=== PATIENT | female | born 1985 | race Caucasian/White ===

== ENCOUNTER 2021-07-07 15:23 | Outpatient (CLI) | payer BC, SELFPAY ==
[2021-07-07 16:10] LABS: Hemoglobin 12.9 g/dL (12.0-15.0); Mean Corpuscular HGB Conc 30.7 g/dL (32.0-36.0); Mean Corpuscular Hemoglobin 25.4 pg (27.0-31.0); Mean Corpuscular Volume 82.7 fL (78.0-102.0); Platelet Count Result 385 K/mm3 (150-420); Red Blood Count 5.08 M/mm3 (4.20-5.40); Red Cell Distribution Width 13.3 % (11.6-14.4); White Blood Count 7.2 K/mm3 (4.8-10.8)
[2021-07-07 16:31] LABS: Alanine Aminotransferase 23 U/L (14-59); Albumin Level 3.5 g/dL (3.4-5.0); Alkaline Phosphatase 69 U/L (46-116); Anion Gap 12 mmol/L (8-16); Aspartate Amino Transferase 14 U/L (15-37); Bilirubin,Total 0.3 mg/dL (0.00-1.00); Blood Urea Nitrogen 16 mg/dL (7-18); Carbon Dioxide 28 mmol/L (21-32); Chloride 101 mmol/L (98-108); Cholesterol 282 mg/dL (0-200); Estimated Glomerular Filt Rate > 60; Glucose 89 mg/dL (70-99); HDL Direct 76 mg/dL (40-60); LDL Cholesterol Calculated 180 mg/dL (<130); Osmolality Calculated 292 mOsm/kg (285-295); Potassium 4.1 mmol/L (3.5-5.1); Sodium 141 mmol/L (136-145); Total Protein 7.4 g/dL (6.4-8.2); Triglycerides 131 mg/dL (0-150)
[2021-07-07 17:01] LABS: Thyroid Stimulating Hormone Reflex 0.46 u/IU/mL (0.36-3.74)
== END 2021-07-07 15:24 | disposition home or self-care (01) ==
LOC: CHSLAB 15:25
PROVIDERS: PCP Family Medicine; Visit Provider Family Medicine
DX: Z00.00 Encounter for general adult medical examination without abnormal findings (principal); E11.9 Type 2 diabetes mellitus without complications
CPT/HCPCS: 36415; 80053; 80061; 84443; 85027

== ENCOUNTER 2022-08-07 08:03 | Emergency (ER) | payer OTHER, SELFPAY ==
--- NOTE | 2022-08-07 08:06 | ED.GENADULT ---
HPI - General Adult General Chief complaint: Upper Respiratory Infection Stated complaint: sorethroat Time Seen by Provider: 08/07/22 08:06 Source: patient Mode of arrival: ambulatory Limitations: no limitations History of Present Illness HPI narrative: 36-year-old female presents to the [facility] with complaints of sore throat that started approximately 5 days ago but states got significantly worse last night. Patient states she has been having fevers, body aches, chills and head congestion as well sore throat. Denies any abdominal pain, nausea, vomiting or diarrhea. Related Data Home Medications Medication Instructions Recorded Confirmed norgestimate 0.25 mg-ethinyl 1 tablet PO DAILY 07/07/21 estradiol 35 mcg tablet (Estarylla) sertraline 50 mg tablet 50 mg PO DAILY 07/07/21 Allergies Allergy/AdvReac Type Severity Reaction Status Date / Time No Known Allergies Allergy Verified 07/07/21 12:20 Review of Systems Review of Systems: CONSTITUTIONAL: Positive fever, chills, or sweats. EYES: Denies visual changes, redness, or discharge. ENT: Denies rhinorrhea, positivecongestion, sore throat, denies otalgia. CARDIOVASCULAR: Denies chest pain, palpitations, or edema. RESPIRATORY: Denies cough or dyspnea. GASTROINTESTINAL: Denies abdominal pain, nausea, vomiting, or diarrhea. GENITOURINARY: Denies dysuria or hematuria. SKIN: Denies rash or itching. MUSCULOSKELETAL: Denies back pain, joint pain, or myalgia. NEUROLOGIC: Denies headache, numbness, or weakness. PSYCHIATRIC: Denies anxiety or depression. [facility] Past Medical History Medical History Depression LOGAN (generalized anxiety disorder) Surgical History Surgical History No history of previous surgery Family History Family History Mother COPD (chronic obstructive pulmonary disease) Alcohol abuse Bipolar 1 disorder Father Hypertension Heart failure Social History Social History Smoking status: Never smoker Alcohol intake: current Alcohol use details: Rarely. 1 drink once a month Substance use: never Living arrangements: with family Comments At the time of my signature I agree with nursing past medical history, surgical, social, and family history. There is no relevant family history pertinent to the presenting complaint. Exam Narrative: GENERAL: Well-appearing, well-nourished, and in no acute distress. HEAD: Normocephalic, atraumatic. EYES: PERRLA and EOMI. ENT: Nares clear, no rhinorrhea or epistaxis. Mucous membranes moist. bilateral TMs are clear with no erythema or foreign bodies to the canal. Posterior pharynx with erythema and 1+ tonsil enlargement bilaterally. NECK: Supple. No lymphadenopathy CHEST: Clear to auscultation. No respiratory distress. HEART: Regular rate and rhythm. No murmur heard. Normal peripheral pulses. ABDOMEN: Soft, nontender, nondistended, normal active bowel sounds. EXTREMITIES: Normal range of motion. No edema. SKIN: Warm, dry, no rash. NEURO: No focal deficits. Alert and oriented x3. Course Course Level of Care: Express Care Visit Vital Signs Vital signs: Vital Signs Temperature 37.3 C 08/07/22 08:16 Pulse Rate 68 08/07/22 08:16 Respiratory Rate 18 08/07/22 08:16 Blood Pressure 130/66 08/07/22 08:16 Pulse Oximetry 100 08/07/22 08:16 Oxygen Delivery Room Air 08/07/22 08:16 Temperature 37.3 C 08/07/22 08:16 Pulse Rate 68 08/07/22 08:16 Respiratory Rate 18 08/07/22 08:16 Blood Pressure 130/66 08/07/22 08:16 Pulse Oximetry 100 08/07/22 08:16 Oxygen Delivery Room Air 08/07/22 08:16 Vital signs reviewed Medical Decision Making Differential Diagnosis Differential Diagnosis: differential diagnosis: Viral pharyngitis,
[2022-08-07 08:16] VITALS: BP 130/66; PULSE 68; RESP 18; TEMP 37.3; O2SAT 100
== END 2022-08-07 08:51 | disposition home or self-care (01) ==
PROVIDERS: Emergency Provider Nurse Practitioner Family; PCP Family Medicine
DX: J02.0 Streptococcal pharyngitis (principal)
CPT/HCPCS: 87804; 87880; 99213; G0463

== ENCOUNTER 2022-09-26 08:38 | Emergency (ER) | payer OTHER, SELFPAY ==
--- NOTE | ~2022-09-26 | CT_ITS ---
EXAMINATION: CT soft tissue neck w con DATE: 09/26/2022 10:44 INDICATION: Right neck swelling TECHNIQUE: Computed tomography (CT) of the neck was performed with 75 cc of Omnipaque 350 intravenous contrast. The dose-length product (DLP) was 543.58 mGy-cm. Automated exposure control and iterative reconstruction technique were employed. COMPARISON: None FINDINGS: There is mild inflammatory change of the posterior aspect of the right parotid gland. The i nflammatory change extends into the soft tissues surrounding the external auditory canal. No abscess is identified. There is no cervical lymphadenopathy. The osseous structures are unremarkable. There i s a 10 mm nodule of the left thyroid lobe. Mild atelectasis is noted in the lungs. IMPRESSION: 1. Parotiditis of the posterior right parotid gland with inflammatory change extending into the soft tissues surrounding the external auditory canal. Reviewed, dictated and finalized at location A. IMPRESSION: 1. Parotiditis of the posterior right parotid gland with inflammatory change ex tending into the soft tissues surrounding the external auditory canal.
[2022-09-26 08:42] VITALS: BP 145/91; PULSE 55; RESP 16; TEMP 37; O2SAT 99
--- NOTE | 2022-09-26 09:34 | ED.GENADULT ---
HPI - General Adult General Chief complaint: Ear Stated complaint: swollen ear Time Seen by Provider: 09/26/22 08:57 History of Present Illness HPI narrative: Ele Henderson is a 37 y/o female who present with reports of swelling to right ear that started 3 days ago. She was evaluated by her PCP 2 days ago and was started on Keflex. She has been taking that as ordered and reports the swelling and pain is now getting worse. She denies sore throat/ cough/ fever/ inner ear pain. Related Data Home Medications Medication Instructions Recorded Confirmed norgestimate 0.25 mg-ethinyl 1 tablet PO DAILY 07/07/21 estradiol 35 mcg tablet (Estarylla) sertraline 50 mg tablet 50 mg PO DAILY 07/07/21 Allergies Allergy/AdvReac Type Severity Reaction Status Date / Time No Known Allergies Allergy Verified 09/24/22 08:15 Review of Systems Review of Systems: CONSTITUTIONAL: Denies fever, chills, or sweats. EYES: Denies visual changes, redness, or discharge. ENT: Denies rhinorrhea, congestion, sore throat, right ear pain with swelling CARDIOVASCULAR: Denies chest pain, palpitations, or edema. RESPIRATORY: Denies cough or dyspnea. GASTROINTESTINAL: Denies abdominal pain, nausea, vomiting, or diarrhea. GENITOURINARY: Denies dysuria or hematuria. SKIN: Denies rash or itching. MUSCULOSKELETAL: Denies back pain, joint pain, or myalgia. NEUROLOGIC: Denies headache, numbness, dizziness, or weakness. PSYCHIATRIC: Denies anxiety or depression. [facility] Past Medical History Medical History Depression LOGAN (generalized anxiety disorder) Surgical History Surgical History No history of previous surgery Family History Family History Mother COPD (chronic obstructive pulmonary disease) Alcohol abuse Bipolar 1 disorder Father Hypertension Heart failure Social History Social History Smoking status: Never smoker Alcohol intake: current Alcohol use details: Rarely. 1 drink once a month Substance use: never Living arrangements: with family Exam Narrative: GENERAL: Well-appearing, well-nourished, and in no acute distress. HEAD: Normocephalic, atraumatic. EYES: PERRLA and EOMI. ENT: Nares clear, no rhinorrhea or epistaxis. Mucous membranes moist. Oropharynx without tonsillar hypertrophy exudate or other lesions. Bilateral TMs pearly rollins nonbulging- Moderate Exterior Ear Swelling with scabbing behind ear with surrounding cellulitis NECK: Supple. No adenopathy or masses. No carotid bruits or JVD CHEST: Clear to auscultation. No respiratory distress. No wheezes rales or rhonchi HEART: Regular rate and rhythm. No murmur heard. Normal peripheral pulses. ABDOMEN: Soft, nontender, nondistended, normal active bowel sounds. EXTREMITIES: Normal range of motion. No edema. SKIN: Warm, dry, no rash. NEURO: No focal deficits. Alert and oriented x3. PSYCH: Normal mood and affect. Course Vital Signs Vital signs: Vital Signs Temperature 37.0 C 09/26/22 08:42 Pulse Rate 55 L 09/26/22 08:42 Respiratory Rate 16 09/26/22 08:42 Blood Pressure 145/91 H 09/26/22 08:42 Pulse Oximetry 99 09/26/22 08:42 Oxygen Delivery Room Air 09/26/22 08:42 Temperature 37.0 C 09/26/22 08:42 Pulse Rate 91 09/26/22 11:12 Respiratory Rate 16 09/26/22 11:12 Blood Pressure 135/60 09/26/22 11:12 Pulse Oximetry 100 09/26/22 11:12 Oxygen Delivery Room Air 09/26/22 08:42 Medical Decision Making [facility] Narrative Medical decision making narrative: Patient noted to have moderate swelling to her right ear that is now extending to the right side of her neck, with cellulitis extending surrounding ear. Differential Diagnosis Differential Diagnosis: Cellulitis/ auricular abscess / perichondritis/
[2022-09-26] MEDS: KETOROLAC 30 MG/ML VIAL (*BKC) IV PUSH (09:37)
[2022-09-26 09:48] LABS: Basophils Percent Auto 0.8 % (0.2-1.2); Eosinophils Absolute Auto 0.2 K/mm3 (0-0.3); Eosinophils Percent Auto 4.1 % (0-4.4); Hematocrit 39.3 % (37.0-47.0); Hemoglobin 12.6 g/dL (12.0-15.0); Immature Granulocyte Absolute 0.01 K/mm3 (0.00-0.031); Immature Granulocyte Percent A 0.2 % (0-0.5); Lymphocytes Absolute Auto 1.76 K/mm3 (0.9-3.2); Lymphocytes Percent Auto 36.2 % (18.3-44.2); Mean Corpuscular HGB Conc 32.1 g/dl (32-36); Mean Corpuscular Hemoglobin 27.3 pg (26-34); Mean Corpuscular Volume 85.2 fl (80-100); Mean Platelet Volume 9.5 fl (7.4-10.4); Monocytes Absolute Auto 0.5 K/mm3 (0.1-0.6); Monocytes Percent Auto 10.5 % (2.6-8.5); Neutrophils Absolute Auto 2.3 K/mm3 (1.3-6.7); Neutrophils Percent Auto 48.2 % (45.5-73.1); Platelet Count Result 233 k/mm3 (150-375); Red Blood Count 4.61 M/mm3 (4.2-5.4); Red Cell Distribution Width 14.5 % (11.5-14.5); White Blood Count 4.9 K/mm3 (4.5-10.0)
[2022-09-26 10:07] LABS: Alanine Aminotransferase 22 U/L (6-35); Albumin Level 3.9 g/dL (3.5-5.1); Alkaline Phosphatase 60 U/L (38-126); Anion Gap 3 mmol/L (8-16); Aspartate Amino Transferase 21 U/L (14-36); Bilirubin,Total 0.4 mg/dL (0.2-1.3); Blood Urea Nitrogen 9 mg/dL (7-17); Calcium 8.6 mg/dL (8.4-10.2); Carbon Dioxide 28 mmol/L (22-30); Chloride 108 mmol/L (98-107); Estimated CRCL calculation 144 ml/min; Estimated Glomerular Filt Rate > 60; Glucose 90 mg/dL (65-110); Potassium 4.2 mmol/L (3.4-5.0); Sodium 139 mmol/L (137-145)
[2022-09-26 11:12] VITALS: BP 135/60; PULSE 91; RESP 16; O2SAT 100
[2022-09-26] MEDS: AMOXICILLIN/CLAVULANATE K 875-125 MG TAB 1 TABLET PO (11:27)
== END 2022-09-26 11:43 | disposition home or self-care (01) ==
PROVIDERS: Emergency Provider Nurse Practitioner Family; PCP Family Medicine
DX: K11.20 Sialoadenitis, unspecified (principal); F32.A Depression, unspecified; F41.1 Generalized anxiety disorder
CPT/HCPCS: 36415; 70491; 80053; 85025; 96374; 99284; A9270; J1885; Q9967

== ENCOUNTER 2024-04-20 08:00 | Outpatient (CLI) | payer OTHER, SELFPAY ==
[2024-04-20 08:59] LABS: Alanine Aminotransferase 23 U/L (14-59); Albumin Level 3.5 g/dL (3.4-5.0); Alkaline Phosphatase 63 U/L (46-116); Anion Gap 8 mmol/L (4-12); Aspartate Amino Transferase 13 U/L (15-37); Bilirubin,Total 0.8 mg/dL (0.00-1.00); Blood Urea Nitrogen 17 mg/dL (7-18); Calcium 8.7 mg/dL (8.5-10.1); Carbon Dioxide 30 mmol/L (21-32); Chloride 102 mmol/L (98-108); Cholesterol 201 mg/dL (0-200); Estimated Glomerular Filt Rate > 60; Glucose 89 mg/dL (70-99); HDL Direct 64 mg/dL (40-60); LDL Cholesterol Calculated 121 mg/dL (<130); Osmolality Calculated 290 mOsm/kg (285-295); Potassium 4.1 mmol/L (3.5-5.1); Sodium 140 mmol/L (136-145); Total Protein 6.8 g/dL (6.4-8.2); Triglycerides 81 mg/dL (0-150)
[2024-04-22 02:18] LABS: Vitamin D 25 Hydroxy 42 ng/mL (30-100)
== END 2024-04-20 08:01 | disposition home or self-care (01) ==
LOC: CHSLAB 08:01
PROVIDERS: PCP Family Medicine; Visit Provider Nurse Practitioner Family
DX: Z00.00 Encounter for general adult medical examination without abnormal findings (principal); F32.A Depression, unspecified; Z79.899 Other long term (current) drug therapy; Z13.6 Encounter for screening for cardiovascular disorders
CPT/HCPCS: 36415; 80053; 80061; 82306

== ENCOUNTER 2024-08-11 11:18 | Emergency (ER) | payer OTHER, SELFPAY ==
--- NOTE | ~2024-08-11 | XR_ITS ---
EXAMINATION: XR chest 1V portable DATE: 08/11/2024 11:43 INDICATION: Cough and congestion. TECHNIQUE: A single frontal view of the chest was obtained. COMPARISON: None. FINDINGS: There is no pneumonia, pleural effusion, or pneumothorax. The heart size is normal. IMPRESSION: 1. No acute cardiopulmonary disease. Reviewed, dictated and finalized at location A. [employer]
[2024-08-11 11:18] VITALS: BP 130/79; PULSE 74; RESP 16; TEMP 36.7; O2SAT 99
[2024-08-11 11:20] VITALS: O2SAT 99
--- OUTSIDE RECORDS SUMMARY | 2024-08-11 11:20 | XMS_ITS | Clinical Summary ---
Author Organization [facility] Address [address] [place] [address] Care Team Providers Care Director Stars Name Role Phone Lake Geiger MD Primary Care Provider [phone] Source Comments [facility],non-owned Affiliates and Associated Physician Practices is amultiple site organization consisting of ambulatory clinics and hospital sitesin [place], [place], [place] and [place]. This disclosure is being madepursuant to the Care Everywhere program and may not contain all information available regarding this patient. Last updated 18.[facility] Allergies No known active allergies Medications * Be aware that medications may not be up to date on this document. Alwaysverify current medications with the patient. Medication Sig Dispensed Refills Start Date End Date Status Calcium Carbonate Antacid (TUMS PO) Take by mouth. Act amanuel folic acid 400 MCG tablet Take 400 mcg by mouth once daily. Active Vit-Fe Fumarate-FA ( VITAMIN) 28-0.8 MG tablet Take 1 Tab by mouth once daily. Active etfk-zobcsatzgsnui-jo chloral (MIDRIN) 325-65-100 MG capsuleIndications:Mi graine Take 1 Cap by mouth every 4 hours as needed. Indications: Migraine Headache Active Rho D Immune Globulin (RHOGAM, HUMAN, IM) Inject into muscle. 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 [facility] PATIENT--PLEASE CALL [phone] IF TRIAGED OR ADMITTED Diagnosis: Diamniotic Monochorionic Twin Planned surveillance: FDC every 3 weeks for growth US; Weekly BPP/NST in Dr. Thurman's office Planned delivery location: [facility] ([place], [place]) Planned GA at delivery:Term Planned mode of delivery:TBD (Primip) Care Provider: Dr. Aman Thurman ([place], [place]) Consultants involved:ELECTRICAL WORKER-Interventional Geneticists- Quoc care needed at :TBD Planned care after delivery:TBD In Store Banker: Dr. Ele Thurman ([place], [place]) Family History Medical History Relation Name Comments Arthritis Maternal Grandmother Twins Maternal Grandmother Arthritis Mother Hypertension Mother Multiple Births Mother Cancer Paternal Grandfather prostat e/ lung cancer Arthritis Paternal Grandmother Hypertension Paternal Grandmother Bleeding Disorders Neg Hx Clotting Disorder Neg Hx Diabetes Neg Hx Genetic/Metabolic Disease Neg Hx Heart Disease Neg Hx Kidney Disease Neg Hx Labor Neg Hx Sickle Cell Anemia Neg Hx Stroke Neg Hx Toxemia Neg Hx Tuberculosis Neg Hx Relation Name Status Comments Maternal Grandmother Mother Paternal Grandfather Paternal Grandmother Social History Tobacco Use Types Packs/Day Years Used Date Smoking Tobacco: Never Smokeless Tobacco: Never Alcohol Use Standard Drinks/Week Comments No 0 (1 standard drink = 0.6 oz pur e alcohol) Sex and Gender Information Value Date Recorded Sex Assigned at Not on file Gender Identity Not on file Sexual Orientation Not on file Last Filed Vital Signs Vital Sign Reading Time Taken Comments Blood Pressure 120/87 01/25/2012 9:23 AM CDT Pulse 99 01/25/2012 9:23 AM CDT Temperature - - Respiratory Rate - - Oxygen Saturation - - Inhaled Oxygen Concentration - - Weight 128.8 kg (284 lb) 01/25/2012 12:45 PM CDT Height - - Body Mass Index - - Plan of Treatment Health Maintenance Due Date Last Done Comments PAP SMEAR 1985 HIV SCREENING 2000 HEPATITIS C SCREENING 08/11/2003 DTAP/TDAP/TD VACCINES (1 - Tdap) 2004 HEPATITIS B VACCINE (1 of 3 - 19+ 3-dose series) 2004 COVID-19 VACCINE (2023-2 5 season) 2024 INFLUENZA VACCINE (#1) 2024 DEPRESSION SCREENING 07/04/2024 ZOSTER VACCINE (1 of 2) 2035 HIB VACCINE Aged Out No longer eligi ble based on patient's age to complete this topic HPV VACCINE Aged Out No longer eligi ble based on patient's age to complete this topic MENINGOCOCCAL (Group B) VACCINE Aged Out No longer eligible based on patient's age to complete this topic MENINGOCOCCAL VACCINE Aged Out No abelino mary eligible based on patient's age to complete this topic PNEUMOCOCCAL VACCINE Aged Out No long er eligible based on patient's age to complete this topic Care Teams Director Stars Relationship Specialty Start Date End Date Lake Geiger MD [address] [place] [address] PCP - General 11/30/11
--- OUTSIDE RECORDS SUMMARY | 2024-08-11 11:20 | XMS_ITS | Clinical Summary ---
Author Organization [facility] Address Formerly [facility] [place] [address] Care Team Providers Care Personal Service Representative Name Role Phone Ranjit Rangel MD Unavailable [phone] Reynold Connor MD Primary Care Provider [phone] Allergies No known active allergies Medications 28-0.8 MG tablet Take 1 tablet by mouth. Active citalopram 10 MG tablet daily. 09/20/2017 Active Active Problems Problem Noted Date Diagnosed Date Palpitations 12/23/2017 Family History Medical History Relation Comments Heart Attack Mother Relation Status Comments Mother Social History Tobacco Use Types Packs/Day Years Used Date Smoking Tobacco: Never Smokeless Tobacco: Never Alcohol Use Standard Drinks/Week Comments No 0 (1 standard drink = 0.6 oz pur e alcohol) Comments Unknown Sex and Gender Information Value Date Recorded Sex Assigned at Not on file Legal Sex Female 9:16 PM CDT Gender Identity Not on file Sexual Orientation Not on file Last Filed Vital Signs Vital Sign Reading Time Taken Comments Blood Pressure 120/60 12/23/2017 10:00 AM CDT Pulse 72 12/23/2017 10:00 AM CDT Temperature - - Respiratory Rate 16 12/23/2017 10:0 0 AM CDT Oxygen Saturation - - Inhaled Oxygen Concentration - - Weight 114.9 kg (253 lb 3.2 oz) 018 10:00 AM CDT Height 165.7 cm (5' 5.25 ) 12/23/2017 1 0:00 AM CDT Body Mass Index 41.81 12/23/2017 10:00 AM CDT Plan of Treatment Health Maintenance Due Date Last Done Comments Cervical Cancer Screening Pa p Smear (Age 30 to 64) Every 3 Years 1985 Annual Physical 1988 Hepatitis C 2003 DTaP, Tdap and Td Vaccines ( 1 - Tdap) 2004 Hepatitis B Vaccines (1 of 3 - 19+ 3-dose series) 2004 Cervical Cancer Screening Pa p with HPV Testing (Age 30 to 64) Every 5 Years 2015 Cervical Cancer Screening with HPV 2015 COVID-19 Vaccine ( - 2023-2 5 season) 2024 Influenza Adult (#1) 2024 HPV Vaccines Aged Out No longer eligi ble based on patient's age to complete this topic Meningococcal B Vaccine Aged Out No l onger eligible based on patient's age to complete this topic Meningococcal Vaccine Aged Out No abelino mary eligible based on patient's age to complete this topic Pneumococcal Vaccine: Pediat rics (0 to 5 Years) and At-Risk Patients (6 to 64 Years) Aged Out No longer eligible b ased on patient's age to complete this topic RSV Immunizations Under 20 Months Aged Out No longer eligible based on patient's age to complete this topic Insurance [employer] Care Teams Personal Service Representative Relationship Specialty Start Date End Date Reynold Connor MD [address] [place] [address] PCP - General FAMILY PRACTICE 12/23/17 Ranjit Rangel MD CARDIOVASCULAR DISEASE 12/23/17
--- OUTSIDE RECORDS SUMMARY | 2024-08-11 11:20 | XMS_ITS | Patient Health Summary ---
Author Organization [facility] [employer] Address [address] [facility] [place] [address] Care Team Providers Care Sheet Taker Name Role Phone Lake Geiger MD Primary Care Provider [phone] [facility],non-owned Affiliates and Associated Physician Practices is amultiple site organization consisting of ambulatory clinics and hospital sitesin [place], [place], [place] and [place]. This disclosure is being madepursuant to the Care Everywhere program and may not contain all information available regarding this patient. Last updated 18.[facility] [employer] Allergies No known active allergies Medications * Be aware that medications may not be up to date on this document. Alwaysverify current medications with the patient. * Calcium Carbonate Antacid (TUMS PO) Take by mouth. * folic acid 400 MCG tablet Take 400 mcg by mouth once daily. * Vit-Fe Fumarate-FA ( VITAMIN) 28-0.8 MG tablet Take 1 Tab by mouth once daily. * ddzu-yafzjnysyjzbr-nxpsbkjcv (MIDRIN) 325-65-100 MG capsule Take 1 Cap by mouth every 4 hours as needed. Indications: Migraine Headache * Rho D Immune Globulin (RHOGAM, HUMAN, IM) Inject into muscle. Active Problems Problem Noted Date Diagnosed Date Monochorionic diamniotic twin 12/14/19 12 abnormality in pregnan cy- Diamniotic Monochorionic Twin 11/16/2011 Social History Tobacco Use Types Packs/Day Years [...] - - Body Mass Index - - Procedures * SONOGRAM - COMPLETE(Performed 01/25/2012) Performed for abnormality in - Diamniotic Monochorionic Twin * SONOGRAM - COMPLETE(Performed 01/04/2012) Performed for abnormality in - Diamniotic Monochorionic Twin * SONOGRAM - COMPLETE(Performed 12/14/2011) Performed for abnormality in - Diamniotic Monochorionic Twin * SONOGRAM - COMPLETE(Performed 11/30/2011) Performed for abnormality in - Diamniotic Monochorionic Twin * SONOGRAM - COMPLETE(Performed 11/23/2011) Performed for abnormality in - Diamniotic Monochorionic Twin * LAB RESULTS ORDER(Performed 11/16/2011) * IMAGING/RADIOLOGY/XRAY RESULTS ORDER(Performed 11/16/2011) * SONOGRAM - COMPLETE(Performed 11/16/2011) Performed for abnormality in (HCC) * LAB HISTORICAL RESULTS-ONBASE(Performed 11/11/2011) * US OB DETAIL ANATOMY SINGLE GEST(Performed 10/18/2011) * URINALYSIS - POINT OF CARE (AMB) SLU(Performed 07/04/1998) * PROFILE I W/ HBSAG(Performed 07/04/1998) Results * SONOGRAM - COMPLETE (01/25/2012 9:46 AM CDT) Only the most recent of6 resultswithin the time period is included. Anatomical Region Laterality Modality Other 01/25/2012 9:46 AM CDT Narrative 01/25/2012 12:18 PM CDT [facility] FAX: [phone] FETUS A Pat. Name: JESSIE HENDERSON Pat. No: [id number] Study Date: 01/25/2012 9:46am , Age: 02 1985, 26 Pregnancies: 1 LMP: Unknown GA by 1st: 31.9 weeks GA by US: 32.1 weeks GA Selected: 31.9 weeks (From Known E) MONICA: 03/22/2012 Referring MD: MAYTE UMANA MD Tableau Administrator: Tiera Lieberman RDMS Hist/Ind: DILEEP/CHARLOTTE Twins MEASUREMENTS & AGE GROWTH EVALUATION Measurement GA Range Source %for GA Ratios ---- ------- ------- BPD 8.3 cm 33.3 (30.2-36.4) Hadlock BPD 70% FL/BPD 0.72 (0.71 - 0.87) HC 30.9 cm 34.5 (31.5-37.5) Hadlock HC 90% FL/AC 0.20 (0.20 - 0.24) AC 29.6 cm 33.5 (30.5-36.5) Hadlock AC 75% HC/AC 1.05 (0.96 - 1.15) FL 6.0 cm 31.1 (28.1-34.1) Hadlock FL 39% CI 0.78 (0.70 - 0.86) HL 4.8 cm 28.2 (25.5-31.0) Katherine HL <05 GA for sonogram 32.1 wk (29.2-35.1) Weight Estimate: based on (HL,BPD,HC,AC,FL) Avg Weight: 2080 gm (3249-9460) Hadlo : 4lbs, 9oz Normal: 1784 gm (0190-8165) Brenn Wt% 67% for 31.9 wks Heart Rate: 133 bpm Amniotic Fluid Index: 06.2cm (Deepest Pocket) Biophysical Profile: 04/12 Breathin Tone: 2 NST: 2 Movement: 2 AFV: 2 DOPPLER Umbilical - Mid Cord S/D 3.80 Middle Cerebral Artery PSV Med PSV 44.2cm/s MoM 0.81(<1.5) CLINICAL SUMMARY Study Number: 6 A DA/MC twin iup is again demonstrated. Twin A is male, vertex on the maternal left. Twin B is male, vertex on the maternal right and is now the presenting twin. The amniotic fluid appears normal for both twins: Twin A fluid volume measures 6.2 and twin B measures 6.3. A chorionic peak is not seen. One anterior placenta is seen. Interval growth of Twin A is appropriate, Twin B growth is at lower confidence intervals however position limits ability to obtain biometry. A growth discordance of 20% is noted. DOPPLER STUDIES The umbilical artery Doppler is 3.8 for twin A,and 3.0 for twin B , which are within normal limits for gestational age. The MCA peak velocity is 35.7 for Twin A and 30.8 for Twin B (< 1.0 MoM) The ductus venosus shows a normal wave form for Twin A and normal for Twin B. TESTING The Biophysical profile score is 10/10 for each twin.. IMPRESSION Twin, Diamniotic-Monochorionic, IUP at 31w6d, normal growth for Twin A, Borderline SGA growth for Twin B with 20% difference in EFWs Reassuring umbilical artery dopplers and BPPs for both twins RECOMMEND: Jessie was noted to be giacomo every 7-8 minutes during the monitoring, most of which she does not feel. She has been noticing an increasing in non-painful contractions over the past few days. Given her gestational age, an FFN may be helpful, therefore plan to contact her MDs office when they reopen to discuss where/when a FFN could be obtained locally. Continue weekly testing. A f/u study for growth at the [facility] in 3 weeks is planned. Thank you for allowing us the opportunity to care for your patient. Marcella Kumari MD <Electronic Signature> 01/25/2012 12:17pm FETUS B Pat. Name: JESSIE HENDERSON Pat. No: [id number] Study Date: 01/25/2012 9:46am , Age: 02 1985, 26 Pregnancies: 1 LMP: Unknown GA by 1st: 31.9 weeks GA by US: 30.9 weeks GA Selected: 31.9 weeks (From Known E) MONICA: 03/22/2012 Referring MD: MAYTE UMANA MD Tableau Administrator: Tiera Lieberman RDMS Hist/Ind: DILEEP/CHARLOTTE Twins MEASUREMENTS & AGE GROWTH EVALUATION Measurement GA Range Source %for GA Ratios ---- ------- ------- BPD 7.7 cm 30.9 (27.8-34.0) Hadlock BPD 37% FL/BPD 0.74 (0.71 - 0.87) HC 29.6 cm 32.8 (29.8-35.8) Hadlock HC 63% FL/AC 0.21 (0.20 - 0.24) AC 27.2 cm 31.3 (28.3-34.3) Hadlock AC 41% HC/AC 1.09 (0.96 - 1.15) FL 5.7 cm 29.8 (27.7-31.9) Hadlock FL 5% CI 0.72 (0.70 - 0.86) HL 5.1 cm 29.9 (27.1-32.6) Katherine HL 17% GA for sonogram 30.9 wk (28.1-33.7) Weight Estimate: based on (HL,BPD,HC,AC,FL) Avg Weight: 1663 gm (5048-5613) Hadlo : 3lbs, 10oz Normal: 1784 gm (9700-1870) Brenn Wt% 40% for 31.9 wks Heart Rate: 147 bpm Amniotic Fluid Index: 06.3cm (Deepest Pocket) Biophysical Profile: 04/12 Breathin Tone: 2 NST: 2 Movement: 2 AFV: 2 DOPPLER Umbilical - Mid Cord S/D 3.00 Middle Cerebral Artery PSV Med PSV 44.2cm/s MoM 0.70(<1.5) CLINICAL SUMMARY Marcella Kmuari MD <Electronic Signature> 01/25/2012 12:17pm Marcella Kumari MD [facility] ORDERABLES * LAB RESULTS ORDER (11/16/2011 9:17 PM CDT) Narrative Transcriptions Document, Scanned - 11/16/2011 9:17 PM CDT Scanned Document LAB - THERAPEUTIC DR MICHAEL MONITORING ORDERABLES * IMAGING/RADIOLOGY/XRAY RESULTS ORDER (11/16/2011 9:17 PM CDT) Anatomical Region Laterality Modality Other Narrative Transcriptions Document, Scanned - 11/16/2011 9:16 PM CDT Document, Scanned - 11/16/2011 9:17 PM CDT Document, Scanned - 11/16/2011 9:17 PM CDT Scanned Document IMAGING * LAB HISTORICAL RESULTS-ONBASE (11/11/2011) 11/11/2011 Historical Provider LAB - CHEMISTRY O RDERABLES Performing Organization Address City/State/[facility] Co de Phone Number [place] [phone] [address] * US OB DETAIL ANATOMY SINGLE GEST (10/18/2011 11:40 AM CDT) Anatomical Region Laterality Modality Abdomen Other Narrative 10/18/2011 11:40 AM CDT Ready in [employer]. Sima Lamar RDMS Procedure Note Provider, MD Mehreen - 10/02/2017 Ready in [employer]. Sima Lamar RDMS Historical Provider ORDERABLES * URINALYSIS - POINT OF CARE (AMB) U (07/04/1998 12:00 AM SOFTWARE DESIGNER) Glucose UA n [facility] Bilirubin [facility] Ketones UA POCT n [facility] Specific [place] UA n [facility] Blood Urine POCT n [facility] pH UA n [facility] Protein UA n [facility] Urobilinogen UA n [facility] Nitrite UA n [facility] WBC UA n [facility] Urine specimen (specimen) 07/04/1998 Historical Provider LAB - POINT OF CA RE ORDERABLES Performing Organization Address City/[facility]/ZIP Co de Phone Number [facility] * PROFILE I W/ HBSAG (07/04/1998 12:00 AM SOFTWARE DESIGNER) Antibody Screen negative [facility] Rh Type negative [facility] ABO o [facility] 07/04/1998 Narrative [facility] - 07/04/1998 12:00 AM SOFTWARE DESIGNER This external order was created through the Results Console. Historical Provider LAB - CHEMISTRY O RDERABLES [facility] Care Teams Sheet Taker Relationship Specialty Start Date End Date Lake Geiger MD [address] [place] [address] PCP - General 11/30/11
--- OUTSIDE RECORDS SUMMARY | 2024-08-11 11:20 | XMS_ITS | Referral Summary ---
Author Organization [facility] [employer] Address [address] [place] [address] Care Team Providers Care Anesthesiology Tech Name Role Phone Lake Geiger MD Primary Care Provider [phone] Source Comments [facility] [employer],non-owned Affiliates and Associated Physician Practices is amultiple site organization consisting of ambulatory clinics and hospital sitesin [place], [place], [place] and [place]. This disclosure is being madepursuant to the Care Everywhere program and may not contain all information available regarding this patient. Last updated 18.[facility] [employer] Allergies No known active allergies Medications * [...] 1 Tab by mouth once daily. Active zyfm-rlvuyoiigemke-yn chloral (MIDRIN) 325-65-100 MG capsuleIndications:Mi graine Take 1 Cap by mouth every 4 hours as needed. Indications: Migraine Headache Active Rho D Immune Globulin (RHOGAM, HUMAN, IM) Inject into muscle. 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 [facility] PATIENT--PLEASE CALL [phone] IF TRIAGED OR ADMITTED Diagnosis: Diamniotic Monochorionic Twin Planned surveillance: JAIL every 3 weeks for growth US; Weekly BPP/NST in Dr. Thurman's office Planned delivery location: [facility] ([place], [place]) Planned GA at delivery:Term Planned mode of delivery:TBD (Primip) Care Provider: Dr. Aman Thurman ([place], [place]) Consultants involved:RN TELEPHONE TRIAGE-Interventional Geneticists- Quoc care needed at :TBD Planned care after delivery:TBD Tourist Information Assistant: Dr. Ele Thurman ([place], [place]) Social History Tobacco Use Types Packs/Day Years [...] Mass Index - - Plan of Treatment Not on file Care Teams Anesthesiology Tech Relationship Specialty Start Date End Date Lake Geiger MD [address] [address] PCP - General 11/30/11
--- OUTSIDE RECORDS SUMMARY | 2024-08-11 11:48 | XMS_ITS | Clinical Summary ---
Author Organization [facility] [employer] Address [address] [facility] [place] [address] Care Team Providers Care Glassie Name Role Phone Lake Geiger MD Primary Care Provider [phone] Source Comments [facility] [employer],non-owned Affiliates and Associated Physician Practices is amultiple site organization consisting of ambulatory clinics and hospital sitesin [place], [place], [place] and [place]. This disclosure is being madepursuant to the Care Everywhere program and may not contain all information available regarding this patient. Last updated 18.[facility] Allergies No known active allergies Medications * [...] 1 Tab by mouth once daily. Active fipu-ygpolnnvhequi-uy chloral (MIDRIN) 325-65-100 MG capsuleIndications:Mi graine Take 1 Cap by mouth every 4 hours as needed. Indications: Migraine Headache Active Rho D Immune Globulin (RHOGAM, HUMAN, IM) Inject into muscle. 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 [facility] PATIENT--PLEASE CALL [phone] IF TRIAGED OR ADMITTED Diagnosis: Diamniotic Monochorionic Twin Planned surveillance: MCC every 3 weeks for growth US; Weekly BPP/NST in Dr. Thurman's office Planned delivery location: [facility] ([place], [place]) Planned GA at delivery:Term Planned mode of delivery:TBD (Primip) Care Provider: Dr. Aman Thurman ([place], [place]) Consultants involved:DENTAL CREAM MAKER-Interventional Geneticists- Quoc care needed at :TBD Planned care after delivery:TBD Shipper/Receiver: Dr. Ele Thurman ([place], [place]) Family History Medical History Relation Name [...] age to complete this topic Care Teams Glassie Relationship Specialty Start Date End Date Lake Geiger MD [address] [place] [address] PCP - General 11/30/11
--- OUTSIDE RECORDS SUMMARY | 2024-08-11 11:48 | XMS_ITS | Patient Health Summary ---
Author Organization [facility] [employer] Address [address] [facility] [place] [address] Care Team Providers Care Analyzer Sales Name Role Phone Lake Geiger MD Primary Care Provider [phone] Note from [facility],non-owned Affiliates and Associated Physician Practices is amultiple site organization consisting of ambulatory clinics and hospital sitesin [place], [place], [place] and [place]. This disclosure is being madepursuant to the Care Everywhere program and may not contain all information available regarding this patient. Last updated 18.[facility] [employer] Allergies No known active allergies Medications * [...] 1 Tab by mouth once daily. * djkw-qjoxqeuiwgnvm-wrjxtirgu (MIDRIN) 325-65-100 MG capsule Take 1 Cap [...] AM CDT Narrative 01/25/2012 12:18 PM CDT [facility] FAX: [phone] FETUS A Pat. Name: JESSIE HENDERSON Pat. No: [id number] Study Date: 01/25/2012 9:46am , Age: 02 1985, 26 Pregnancies: 1 LMP: Unknown GA by 1st: 31.9 weeks GA by US: 32.1 weeks GA Selected: 31.9 weeks (From Known E) MONICA: 03/22/2012 Referring MD: MAYTE UMANA MD Feather Washer: Tiera Lieberman RDMS Hist/Ind: DILEEP/CHARLOTTE Twins MEASUREMENTS [...] based on (HL,BPD,HC,AC,FL) Avg Weight: 2080 gm (1228-6887) Hadlo : 4lbs, 9oz Normal: 1784 gm (1419-2948) Brenn Wt% 67% for 31.9 wks Heart [...] f/u study for growth at the [facility] in 3 weeks is planned. Thank you for allowing us the opportunity to care for your patient. Marcella Kumari MD <Electronic Signature> 01/25/2012 12:17pm FETUS B Pat. Name: JESSIE HENDERSON Pat. No: [id number] Study Date: 01/25/2012 9:46am , Age: 02 1985, 26 Pregnancies: 1 LMP: Unknown GA by 1st: 31.9 weeks GA by US: 30.9 weeks GA Selected: 31.9 weeks (From Known E) MONICA: 03/22/2012 Referring MD: MAYTE UMANA MD Feather Washer: Tiera Lieberman RDMS Hist/Ind: DILEEP/CHARLOTTE Twins MEASUREMENTS [...] based on (HL,BPD,HC,AC,FL) Avg Weight: 1663 gm (4282-3733) Hadlo : 3lbs, 10oz Normal: 1784 gm (8859-9678) Brenn Wt% 40% for 31.9 wks Heart Rate: 147 bpm Amniotic Fluid Index: 06.3cm (Deepest Pocket) Biophysical Profile: 04/12 Breathin Tone: 2 NST: 2 Movement: 2 AFV: 2 DOPPLER Umbilical - Mid Cord S/D 3.00 Middle Cerebral Artery PSV Med PSV 44.2cm/s MoM 0.70(<1.5) CLINICAL SUMMARY Marcella Kumari MD <Electronic Signature> 01/25/2012 12:17pm Marcella Kumari MD [facility] ORDERABLES * LAB RESULTS ORDER (11/16/2011 9:17 [...] - CHEMISTRY O RDERABLES Performing Organization Address City/State[facility] Co de Phone Number [place] [phone] [address] * US OB DETAIL ANATOMY SINGLE GEST (10/18/2011 11:40 AM CDT) Anatomical Region Laterality Modality Abdomen Other Narrative 10/18/2011 11:40 AM CDT Ready in [employer]. Sima Lamar RDMS Procedure Note Provider, MD Mehreen - 10/02/2017 Ready in [employer]. Sima Lamar RDMS Historical Provider ORDERABLES * URINALYSIS - POINT OF CARE (AMB) U (07/04/1998 12:00 AM TERRA C[place]TA [place]ON) Glucose UA n [facility] Bilirubin UA POCT n [facility] Ketones UA POCT n [facility] Specific [place] UA n [facility] Blood Urine POCT n [facility] pH UA n [facility] Protein UA n [facility] Urobilinogen UA n [facility] Nitrite UA n [facility] WBC UA n [facility] Urine specimen (specimen) 07/04/1998 Historical Provider LAB - POINT OF CA RE ORDERABLES Performing Organization Address City/[facility]/ZIP Co de Phone Number [facility] * PROFILE I W/ HBSAG (07/04/1998 12:00 AM TERRA C[place]TA [place]ON) Antibody Screen negative [facility] Rh Type negative [facility] ABO o [facility] 07/04/1998 Narrative [facility] - 07/04/1998 12:00 AM TERRA [place] This external order was created through the Results Console. Historical Provider LAB - CHEMISTRY O RDERABLES [facility] Care Teams Analyzer Sales Relationship Specialty Start Date End Date Lake Geiger MD [address] [place] [address] PCP - General 11/30/11
--- OUTSIDE RECORDS SUMMARY | 2024-08-11 11:48 | XMS_ITS | Clinical Summary ---
Author Organization [facility] Address [facility] [place] [address] Care Team Providers Care Law Secretary Name Role Phone Ranjit Rangel MD Unavailable [phone] Reynold Connor MD Primary Care Provider [phone] Allergies No known active allergies Medications 28-0.8 [...] this topic Insurance [employer] Care Teams Law Secretary Relationship Specialty Start Date End Date Reynold Connor MD [address] [place] [address] PCP - General FAMILY PRACTICE 12/23/17 Ranjit Rangel MD CARDIOVASCULAR DISEASE 12/23/17
--- OUTSIDE RECORDS SUMMARY | 2024-08-11 11:48 | XMS_ITS | Referral Summary ---
Author Organization [facility] [employer] Address [address] [place] [address] Care Team Providers Care Railcar Switchman Name Role Phone Lake Geiger MD Primary Care Provider Source Comments [facility] [employer]non-owned Affiliates and Associated Physician Practices is amultiple site organization consisting of ambulatory clinics and hospital sitesin [place], [place], [place] and [place]. This disclosure is being madepursuant to the Care Everywhere program and may not contain all information available regarding this patient. Last updated 18.[facility] [employer] Allergies No known active allergies Medications * [...] 1 Tab by mouth once daily. Active swky-lpinunmekpcpr-bx chloral (MIDRIN) 325-65-100 MG capsuleIndications:Mi graine Take 1 Cap by mouth every 4 hours as needed. Indications: Migraine Headache Active Rho D Immune Globulin (RHOGAM, HUMAN, IM) Inject into muscle. 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 [facility] PATIENT--PLEASE CALL [phone] IF TRIAGED OR ADMITTED Diagnosis: Diamniotic Monochorionic Twin Planned surveillance: SHELTER every 3 weeks for growth US; Weekly BPP/NST in Dr. Thurman's office Planned delivery location: [facility] ([place], [place]) Planned GA at delivery:Term Planned mode of delivery:TBD (Primip) Care Provider: Dr. Aman Thurman ([place], [place]) Consultants involved:LASER OPERATOR-Interventional Geneticists- Quoc care needed at :TBD Planned care after delivery:TBD Hot Stick Man: Dr. Ele Thurman ([place], [place]) Social History Tobacco Use Types Packs/Day [...] of Treatment Not on file Care Teams Railcar Switchman Relationship Specialty Start Date End Date Lake Geiger MD [address] [address] PCP - General 11/30/11
[2024-08-11 11:54] LABS: Strep Group A RT-PCR NOT DETECTED (Negative)
[2024-08-11 12:04] LABS: SARS-CoV-2 RNA PCR Negative (Negative)
--- NOTE | 2024-08-11 12:05 | ED_ITS ---
HPI - URI/Sore Throat General Chief Complaint: Upper Respiratory Infection Stated Complaint: cough Time Seen by Provider: 08/11/24 11:26 Source: patient and family Mode of arrival: ambulatory Limitations: no limitations History of Present Illness HPI Narrative: this is a 30-year-old female with 2 week history of cough congestion with no shortness of breath no audible wheezing no fever chills no nausea vomiting or abdominal pain does have some nasal congestion with drainage cough that is productive of yellow sputum. MD elicited complaint: cough and nasal congestion Onset (ago): week(s) Consistency: constant Severity: mild Description of mucous: yellow Exacerbating factors: nothing Relieving factors: nothing Related Data Allergies Allergy/AdvReac Type Severity Reaction Status Date / Time No Known Allergies Allergy Verified 08/11/24 11:26 Review of Systems Review of Systems: All systems reviewed & are unremarkable except as noted in HPI and below PMFSH Past Medical History Medical History LOGAN (generalized anxiety disorder) Depression Surgical History Surgical History No history of previous surgery Family History Family History Mother COPD (chronic obstructive pulmonary disease) Alcohol abuse Bipolar 1 disorder Father Hypertension Heart failure Social History Social History Smoking status: Never smoker Alcohol intake: current Alcohol use details: Rarely. 1 drink once a month Substance use: never Lack of Transportation: No Lack of Food: Never True Current Housing: I Have Housing Concerned About Future Housing: No Difficulty Paying Gas/Electric Bills: No Difficulty Paying for Meds: No Currently Unemployed: No Education: Master's Degree or Higher Difficulty w/ Childcare or Family Care: No Living arrangements: with family Occupation/Education: occupation Gender identity (if verbalized by the patient): Female Exam Const: General: healthy appearing and no acute distress Nutritional Appearance: well nourished Orientation/consciousness: patient oriented x3 Limitations: no limitations HENMT: Head: normal to inspection Other: Nasal congestion Eyes: Conjunctivae: conjunctivae normal Neck: Neck: normal visual inspection Chest: Chest palpation & inspection: normal inspection of the chest Resp: Effort & Inspection: normal respiratory effort Auscultation: clear to auscultation bilaterally Cardio: Rate: regular rate Rhythm: regular rhythm GI: GI Palp: Yes Soft to palpation Course Course Emergency Course: chest x-ray with no acute cardiopulmonary abnormalities, a strep and COVID RSV influenza performed and reviewed with patient and family. Impression influenza disposition home condition stable Vital Signs Vital signs: Vital Signs Temperature 36.7 C 08/11/24 11:18 Pulse Rate 74 08/11/24 11:18 Respiratory Rate 16 08/11/24 11:18 Blood Pressure 130/79 08/11/24 11:18 Pulse Oximetry 99 08/11/24 11:18 Oxygen Delivery Room Air 08/11/24 11:18 Temperature 37.1 C 08/11/24 12:24 Pulse Rate 72 08/11/24 12:24 Respiratory Rate 14 08/11/24 12:24 Blood Pressure 123/61 08/11/24 12:24 Pulse Oximetry 98 08/11/24 12:24 Oxygen Delivery Room Air 08/11/24 12:24 MDM - URI/Sore Throat Lab Data Labs: Lab Results 08/11/24 Range/Units 11:20 Influenza A (RT-PCR) Positive A (Negative) Influenza B (RT-PCR) Negative (Negative) RSV (RT-PCR) Negative (Negative) SARS-CoV-2 RNA (RT-PCR) Negative (Negative) Group A Strep (PCR) Not detected (Negative) Critical Care Time Critical Care Time Critical Care Time: No Discharge Plan Discharge Clinical Impression: Influenza Patient Disposition: Home, Self-Care Condition: Stable Instructions: Antibiotic Form, Influenza (ED) Additional Instructions: Advised to take medication as prescribed and follow up with primary if symptoms persist or worsen. Patient Language: [place] Prescriptions: New oseltamivir [Tamiflu] 75 mg capsule 75 mg PO Q12H 5 Days Qty: 10 0RF ProAir RespiClick 90 mcg/actuation aerosol powdr breath activated 2 inh inhalation QID PRN (Reason: shortness of breath or wheezing) Qty: 1 0RF No Action venlafaxine 75 mg capsule,extended release 24hr See Rx Instructions .ROUTE .COMPLEX Qty: 30 2RF Dose Instruction: TAKE ONE CAPSULE BY MOUTH DAILY Rx Instructions: TAKE ONE CAPSULE BY MOUTH DAILY Follow-up/Referrals: Bhavana Perkins NP [Primary Care Provider] - Time of Disposition: 12:09
[2024-08-11 12:06] LABS: Influenza A QL RT-PCR Positive (Negative); Influenza B QL RT-PCR Negative (Negative); RSV RNA, RT-PCR Negative (Negative)
[2024-08-11 12:24] VITALS: BP 123/61; PULSE 72; RESP 14; TEMP 37.1; O2SAT 98
== END 2024-08-11 12:40 | disposition home or self-care (01) ==
PROVIDERS: Emergency Provider Emergency Medicine; PCP Nurse Practitioner Family
DX: J10.1 Influenza due to other identified influenza virus with other respiratory manifestations (principal); Z20.822 Contact with and (suspected) exposure to COVID-19
CPT/HCPCS: 71045; 87637; 87651; 99283